=== PATIENT | female | born 1995 | race Caucasian/White ===

== ENCOUNTER → 2016-08-23 | Outpatient (CLI) | payer OTHER ==
--- NOTE | 2016-08-23 09:06 | USB ---
Reason for exam: clinical finding. Indicated problem(s): lump or thickening in the right breast. Physical Findings: Nurse Summary: Patient complains of right breast lump x 1 month (nurse mm). US Breast RT Right breast ultrasound includes all four quadrants, the retroareolar region and axilla. Finding demonstrates no cystic or solid lesion seen. These results were verbally communicated with the patient and result sheet given to the patient on 08/23/16. ASSESSMENT: Benign, BI-RAD 2 RECOMMENDATION: Routine screening mammogram of both breasts at age 39. Manage patient on a clinical basis.
== END | disposition home or self-care (01) ==
LOC: RADUSWWP 08:13
PROVIDERS: ATTEND Obstetrics & Gynecology
DX: N63 Unspecified lump in breast (principal)

== ENCOUNTER 2018-09-29 20:48 | Emergency (ER) | payer BC, MEDICAID ==
[2018-09-29 21:09] VITALS: BP 118/73; PULSE 55; RESP 20; TEMP 98.2
[2018-09-29 22:19] LABS: Amorphous Sediment,Urine Few /hpf; Appearance,Urine Cloudy (Clear); Bilirubin,Urine Negative (Negative); Blood,Urine Moderate (Negative); Color,Urine Yellow; Glucose,Urine (UA) Negative (Negative); Ketones,Urine Negative (Negative); Leukocyte Esterase,Urine Negative (Negative); Mucus,Urine Rare /hpf; Nitrite,Urine Negative (Negative); PH, Urine 6.5 (5.0-8.0); Protein,Urine Negative (Negative); RBC,Urine 3 /hpf (0-5); Specific Gravity,Urine 1.016 (1.001-1.035); Squamous Epithelial Cell,Urine 1 /hpf (0-4); Urobilinogen,Urine <2.0 mg/dL (<2.0)
--- NOTE | 2018-09-29 22:28 | ED ---
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 Patient presents the emergency department today for evaluation of vaginal bleeding. Patient reports she had some vaginal bleeding approximately 2 weeks ago she was evaluated by her restaurant crew person at which time ultrasound was normal. Patient reports that today she was in the car when she felt a gush of fluid she checked and there was a large blood clot, she states that there was no products. She's not having any cramping or discomfort. She does not have any lower urinary tract symptoms. She has scheduled follow-up with her restaurant crew person next week. - Related Data Home Medications Medication Instructions Recorded Confirmed Vit No.124/Iron/Folic 1 each PO DAILY 01/28/15 08/24/15 [ Vitamin Tablet] Previous Rx's Medication Instructions Recorded Acetaminophen-Codeine 300-30mg 2 each PO Q4HR PRN #30 tab 08/26/15 [Tylenol w/codeine #3] Allergies Allergy/AdvReac Type Severity Reaction Status Date / Time No Known Allergies Allergy Verified 08/24/15 20:38 Review of Systems ROS Statement: Those systems with pertinent positive or pertinent negative responses have been documented in the HPI. ROS Other: All systems not noted in ROS Statement are negative. Past Medical History Past Medical History: Cancer Additional Past Medical History / Comment(s): Obstetric history: This is her first and she has had care with me since 9 weeks gestation. A+, abs neg, Rub Imm, RPR NR, Hep B neg, HIV NR. Neg quad and normal anatomy US. normal 1hr GTT. GBS neg. History of Any Multi-Drug Resistant Organisms: None Reported Additional Past Surgical History / Comment(s): Melanoma removal, tongue clipped as child. Past Anesthesia/Blood Transfusion Reactions: No Reported Reaction Past Psychological History: No Psychological Hx Reported Smoking Status: Never smoker Past Alcohol Use History: None Reported Past Drug Use History: None Reported - Past Family History Mother Family Medical History: Hypertension Additional Family Medical History / Comment(s): thyroid cancer -maternal grandmother. melanoma - mother General Exam - General Exam Comments Initial Comments: Physical Exam GENERAL: Patient is well-developed and well-nourished. Patient is nontoxic and well- hydrated and is in no distress. HENT: Normocephalic, Atraumatic. EYES: PERRL, EOMI No conjunctival pallor PULMONARY: Unlabored respirations. CARDIOVASCULAR: There is a regular rate and rhythm without any murmurs gallops or rubs. ABDOMEN: Soft and nontender with normal bowel sounds Bedside US single intrauterine fetus, very active on evaluation, heart rate in the 160s SKIN: Skin is clear with no lesions or rashes and otherwise unremarkable. : Deferred NEUROLOGIC: Patient is alert and oriented x3. Moving all extremities spontaneously MUSCULOSKELETAL: Normal extremities with adequate strength and full range of motion. No lower extremity swelling or edema. No calf tenderness. PSYCHIATRIC: Normal psychiatric evaluation. Limitations: no limitations Limitations: no limitations Course Vital Signs 09/29/18 21:05 Temperature 98.2 F Pulse Rate 55 L Respiratory 20 Rate Blood Pressure 118/73 O2 Sat by Pulse 100 Oximetry Medical Decision Making - Medical Decision Making Patient was seen and evaluated, history is obtained from the patient Review of medical record reveals the patient is Rh+ therefore no indication for Robaxin Patient is in her second trimester having a single episode of lasting a blood c lot remaining cramping or discomfort But that ultrasound with a single active fetus Offered the patient a pelvic exam however given that she's not having any active bleeding or discomfort she declined Urinalysis with no signs of infection were discussed with the patient was comfortable with plan for discharge home. Patient is arty contacted her filler blender and will be evaluated later in the week. She was advised to maintain pelvic rest and she'll evaluated by OB. - Lab Data Lab Results 09/29/18 Range/Units 22:00 Urine Color Yellow Urine Appearance Cloudy H (Clear) Urine pH 6.5 (5.0-8.0) Ur Specific [place] 1.016 (1.001-1.035) Urine Protein Negative (Negative) Urine Glucose (UA) Negative (Negative) Urine Ketones Negative (Negative) Urine Blood Moderate H (Negative) Urine Nitrite Negative (Negative) Urine Bilirubin Negative (Negative) Urine Urobilinogen <2.0 (<2.0) mg/dL Ur Leukocyte Esterase Negative (Negative) Urine RBC 3 (0-5) /hpf Ur Squamous Epith Cells 1 (0-4) /hpf Amorphous Sediment Few H (None) /hpf Urine Mucus Rare H (None) /hpf Disposition Clinical Impression: Vaginal bleeding in patient at less than 20 weeks gestation Disposition: HOME SELF-CARE Condition: Stable Instructions (If sedation given, give patient instructions): Threatened Miscarriage (ED) Additional Instructions: Pelvic rest until you follow up with OB Is patient prescribed a controlled substance at d/c from ED?: No Referrals: None,Stated [Primary Care Provider] - 1-2 days Niki Sigala DO [Doctor of Osteopathic Medicine] - 1-2 days
== END 2018-09-29 22:54 | disposition home or self-care (01) ==
LOC: EC 20:48
DX: O20.9 Hemorrhage in early pregnancy, unspecified (principal); Z85.820 Personal history of malignant melanoma of skin; Z3A.14 14 weeks gestation of pregnancy; Z53.29 Procedure and treatment not carried out because of patient's decision for other reasons
CPT/HCPCS: 81001; 99284

== ENCOUNTER 2019-03-18 06:43 | Inpatient (IN) | payer BC, OTHER ==
[2019-03-18] MEDS ORDERED: METHYLERGONOVINE 0.2 MG/ML 1 ML AMP IM PRN (07:03)
[2019-03-18] MEDS ORDERED: TERBUTALINE 1 MG/ML VIAL SQ PRN (07:03)
[2019-03-18] MEDS ORDERED: CARBOPROST TROMETHAMINE 250 MCG/ML 1 ML AMP IM PRN (07:03)
[2019-03-18] MEDS ORDERED: OXYTOCIN 10 UNIT/ML 1 ML VIAL IM PRN (07:03)
[2019-03-18] MEDS ORDERED: LIDOCAINE 0.5% (PF) 5 MG/ML (50 ML SDV) SQ PRN (07:03)
[2019-03-18] MEDS ORDERED: OXYTOCIN 30 UNITS/500 ML NS 30 UNIT in SALINE 1 500ML.BAG IV SCH (07:15)
[2019-03-18] MEDS: LACTATED RINGERS 1,000 ML IV SCH ×2 (08:00→13:08)
[2019-03-18 08:21] LABS: Basophils % (A) 0 %; Eosinophils # (A) 0.1 k/uL (0-0.7); Eosinophils % (A) 1 %; HCT 33.6 % (34.0-46.0); HGB 10.2 gm/dL (11.4-16.0); Hypochromasia Slight; Lymphocytes # (A) 1.5 k/uL (1.0-4.8); Lymphocytes % (A) 15 %; MCH 23.5 pg (25.0-35.0); MCHC 30.3 g/dL (31.0-37.0); MCV 77.6 fL (80.0-100.0); Mean Platelet Volume 6.6; Monocytes # (A) 0.5 k/uL (0-1.0); Monocytes % (A) 5 %; Neutrophils # (A) 7.7 k/uL (1.3-7.7); Neutrophils % (A) 76 %; Platelet Count 315 k/uL (150-450); RBC 4.33 m/uL (3.80-5.40); RDW 14.6 % (11.5-15.5); WBC 10.2 k/uL (3.8-10.6)
[2019-03-18 08:55] VITALS: BMI 29.1
[2019-03-18] MEDS ORDERED: SODIUM CHLORIDE 0.9% 100 ML BAG ONE (11:24)
[2019-03-18] MEDS ORDERED: fentaNYL (PF) 50 MCG/ML 5 ML AMP ONE (11:24)
[2019-03-18] MEDS ORDERED: ROPIVACAINE 5MG/ML 20ML VIAL ONE (11:24)
[2019-03-18] MEDS ORDERED: IBUPROFEN 600 MG TAB PO PRN (16:30)
[2019-03-18] MEDS ORDERED: HYDROCORTISONE 2.5% RECTAL CREAM 30 GM TUBE RECTAL PRN (16:30)
[2019-03-18] MEDS ORDERED: ZOLPIDEM 5 MG TAB PO PRN (16:30)
[2019-03-18] MEDS ORDERED: BENZOCAINE/MENTHOL SPRAY 1 GM/SPRAY AEROSOL TOPICAL PRN (16:30)
[2019-03-18] MEDS ORDERED: diphenhydrAMINE 50 MG/ML 1 ML VIAL IVP PRN ×2 (16:30)
[2019-03-18] MEDS ORDERED: OXYTOCIN 20 UNITS/1000 ML NS 1,000 ML IV SCH (16:30)
[2019-03-18] MEDS ORDERED: SIMETHICONE 80 MG CHEWABLE PO PRN (16:30)
[2019-03-18] MEDS ORDERED: WITCH HAZEL 1 EACH MED..PAD TOPICAL PRN (16:30)
[2019-03-18] MEDS ORDERED: diphenhydrAMINE 25 MG CAP PO PRN (16:30)
[2019-03-18] MEDS ORDERED: LANOLIN CREAM 5 GM TUBE TOPICAL PRN (16:30)
[2019-03-18] MEDS ORDERED: diphenhydrAMINE 50 MG CAP PO PRN (16:30)
[2019-03-18] MEDS ORDERED: ACETAMINOPHEN TAB 325 MG TAB PO PRN (16:30)
--- NOTE | 2019-03-18 16:33 | P.HPOB ---
History of Present Illness H&P Date: 03/18/19 Chief Complaint: Spontaneous rupture of membranes 23-year-old presents at 38 weeks and 6 days with spontaneous rupture membranes at 5:30 AM. When she presented around 7:30 she was 2-3 cm dilated, 60% effaced, and -2 station. She is latisha every 4-5 minutes. heart tones 130 with moderate variability and reactive. Review of Systems All systems: negative Constitutional: Denies chills, Denies fever Eyes: denies blurred vision, denies pain Ears, nose, mouth and throat: Denies headache, Denies sore throat Cardiovascular: Denies chest pain, Denies shortness of breath Respiratory: Denies cough Gastrointestinal: Denies abdominal pain, Denies diarrhea, Denies nausea, Denies vomiting Genitourinary: Denies dysuria, Denies hematuria Musculoskeletal: Denies myalgias Integumentary: Denies pruritus, Denies rash Neurological: Denies numbness, Denies weakness Psychiatric: Denies anxiety, Denies depression Endocrine: Denies fatigue, Denies weight change Past Medical History Past Medical History: Cancer Additional Past Medical History / Comment(s): Obstetric history: First was a vaginal delivery. This is her second and she has had care with me since 9 weeks gestation. A+, abs neg, Rub Imm, RPR NR, Hep B neg, HIV NR. Neg quad and normal anatomy US. normal 1hr GTT. GBS neg. History of Any Multi-Drug Resistant Organisms: None Reported Additional Past Surgical History / Comment(s): Melanoma removal, tongue clipped as child. Past Anesthesia/Blood Transfusion Reactions: No Reported Reaction Past Psychological History: No Psychological Hx Reported Smoking Status: Never smoker Past Alcohol Use History: None Reported Past Drug Use History: None Reported - Past Family History Mother Family Medical History: Hypertension Additional Family Medical History / Comment(s): thyroid cancer -maternal grandmother. melanoma - mother Medications and Allergies Home Medications Medication Instructions Recorded Confirmed Type No Known Home Medications 03/18/19 03/18/19 History Allergies Allergy/AdvReac Type Severity Reaction Status Date / Time No Known Allergies Allergy Verified 03/18/19 06:50 Exam Osteopathic Statement: *. No significant issues noted on an osteopathic structural exam other than those noted in the History and Physical/Consult. Vital Signs Temp Pulse Resp BP Pulse Ox 03/18/19 16:11 131 H 16 126/66 03/18/19 15:41 133 H 16 130/79 03/18/19 15:26 121 H 16 127/66 03/18/19 15:11 127 H 16 153/67 03/18/19 14:56 126 H 16 150/77 03/18/19 14:41 98.3 F 120 H 16 130/70 03/18/19 06:51 97.5 F L 121 H 16 124/68 98 Intake and Output 03/18/19 03/18/19 03/18/19 06:59 14:59 22:59 Output Total 200 Balance -200 Output: Estimated Blood Loss 200 Other: Weight 79.379 kg Heart: Regular rate and rhythm Lungs: Clear to auscultation bilaterally Abdomen: Soft, nontender Extremities: Negative Homans sign Results Result Diagrams: 03/18/19 08:00 Abnormal Lab Results - Last 24 Hours (Table) 03/18/19 Range/Units 08:00 Hgb 10.2 L (11.4-16.0) gm/dL Hct 33.6 L (34.0-46.0) % MCV 77.6 L (80.0-100.0) fL MCH 23.5 L (25.0-35.0) pg MCHC 30.3 L (31.0-37.0) g/dL Assessment and Plan (1) Spontaneous rupture of membranes Current Visit: Yes Status: Acute Code(s): QDE0844 - SNOMED Code(s): 663792956 (2) Normal labor Current Visit: Yes Status: Acute Code(s): O80 - ENCOUNTER FOR FULL-TERM UNCOMPLICATED DELIVERY; Z37.9 - OUTCOME OF DELIVERY, UNSPECIFIED SNOMED Code(s): 93527793 Plan: 1. Admit to family place 2. Expectant management with augmentation if necessary 3. Anticipate normal vaginal delivery
--- NOTE | 2019-03-18 16:34 | P.PROBDLV ---
Vaginal Delivery Note - . Vaginal Delivery Note: 23-year-old presents at 38 weeks and 6 days with spontaneous rupture membranes at 5:30 AM. When she presented around 7:30 she was 2-3 cm dilated, 60% effaced, and -2 station. She is latisha every 4-5 minutes. heart tones 130 with moderate variability and reactive. 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 When she was uncomfortable she did get an epidural. Her cervix was completely dilated at 1419. She pushed, delivered a viable male infant over intact perineum under epidural anesthesia at 1430. Head delivered OA, anterior shoulder delivered gentle downward guidance. The posterior shoulder and rest of body. Nose and mouth bulb suctioned, cord clamped and cut, placed on mother's abdomen. Apgars 9, 10, weight 8 lbs. 7 oz. Placenta delivered spontaneously, intact with three-vessel cord at 1433. Vagina, cervix, and perineum were inspected. No lacerations noted. Estimated blood loss 200 mL. Mother and baby in stable condition.
[2019-03-18 20:30] VITALS: RESP 16
[2019-03-18] MEDS: SENNOSIDES-DOCUSATE SODIUM 1 EACH TAB PO SCH (20:33)
[2019-03-19 07:46] VITALS: BP 124/69; PULSE 113; TEMP 97.8
[2019-03-19] MEDS: SENNOSIDES-DOCUSATE SODIUM 1 EACH TAB PO SCH (07:47)
[2019-03-19 08:18] LABS: Basophils % (A) 0 %; Eosinophils % (A) 0 %; HCT 31.8 % (34.0-46.0); HGB 10.3 gm/dL (11.4-16.0); Hypochromasia Slight; Lymphocytes # (A) 1.3 k/uL (1.0-4.8); Lymphocytes % (A) 10 %; MCH 24.9 pg (25.0-35.0); MCHC 32.3 g/dL (31.0-37.0); MCV 77.3 fL (80.0-100.0); Mean Platelet Volume 6.3; Monocytes # (A) 0.5 k/uL (0-1.0); Monocytes % (A) 4 %; Neutrophils # (A) 10.7 k/uL (1.3-7.7); Neutrophils % (A) 83 %; Platelet Count 289 k/uL (150-450); RBC 4.11 m/uL (3.80-5.40); RDW 14.6 % (11.5-15.5); WBC 12.9 k/uL (3.8-10.6)
--- NOTE | 2019-03-19 08:32 | P.DS ---
Providers Date of admission: 03/18/19 07:02 Expected date of discharge: 03/19/19 Attending physician: Niki Sigala Primary care physician: Stated None - Discharge Diagnosis(es) (1) Spontaneous rupture of membranes Current Visit: Yes Status: Resolved (2) Normal labor Current Visit: Yes Status: Resolved (3) Normal vaginal delivery Current Visit: No Status: Acute Hospital Course: Patient presented with spontaneous rupture of membranes and latisha at 38 weeks and 6 days. She underwent augmentation of labor with Pitocin and then a normal vaginal delivery. Her course has been uncomplicated. She de nies nausea, vomiting, chest pain, shortness of breath or calf pain. Her lochia is decreasing and her pain is controlled. She'll be discharged home day #1 in stable condition to follow-up with me in 6 weeks. Plan - Discharge Summary New Discharge Prescriptions: No Action No Known Home Medications Discharge Medication List No Known Home Medications 03/18/19 [History] Follow up Appointment(s)/Referral(s): Niki Sigala DO [Doctor of Osteopathic Medicine] - 6 Weeks Discharge Disposition: HOME SELF-CARE
== END 2019-03-19 15:20 | disposition home or self-care (01) | DRG 807 ==
LOC: FBPOP 06:43 → 4FBP 07:02
PROVIDERS: ADMIT Obstetrics & Gynecology; ATTEND Obstetrics & Gynecology
PROC: 10E0XZZ Delivery of Products of Conception, External Approach (ICD-10-PCS; principal; 2019-03-18)
PROC: 00HU33Z Insertion of Infusion Device into Spinal Canal, Percutaneous Approach (ICD-10-PCS; principal; 2019-03-18)
PROC: 3E0R3BZ Introduction of Anesthetic Agent into Spinal Canal, Percutaneous Approach (ICD-10-PCS; principal; 2019-03-18)
DX: O80 Encounter for full-term uncomplicated delivery (principal); Z37.0 Single live birth; Z3A.38 38 weeks gestation of pregnancy; Z80.8 Family history of malignant neoplasm of other organs or systems; Z82.49 Family history of ischemic heart disease and other diseases of the circulatory system; Z85.820 Personal history of malignant melanoma of skin
CPT/HCPCS: 59025; 85025; 86850; 86900; 86901; 99213

== ENCOUNTER → 2020-07-13 | Outpatient (CLI) | payer BC, OTHER ==
[2020-07-13 13:09] LABS: Basophils % (A) 0 %; Eosinophils # (A) 0.3 k/uL (0-0.7); Eosinophils % (A) 3 %; HCT 44.2 % (34.0-46.0); HGB 14.6 gm/dL (11.4-16.0); Lymphocytes # (A) 2.5 k/uL (1.0-4.8); Lymphocytes % (A) 26 %; MCH 28.6 pg (25.0-35.0); MCV 86.7 fL (80.0-100.0); Mean Platelet Volume 7.3; Monocytes # (A) 0.4 k/uL (0-1.0); Monocytes % (A) 4 %; Neutrophils # (A) 6.2 k/uL (1.3-7.7); Neutrophils % (A) 65 %; Platelet Count 335 k/uL (150-450); RDW 12.4 % (11.5-15.5); WBC 9.6 k/uL (3.8-10.6)
[2020-07-13 13:16] LABS: African American GFR (CKD) >90 (>60 ml/min/1.73 sqM); Anion Gap 9 mmol/L; Blood Urea Nitrogen 11 mg/dL (7-17); Calcium 10.1 mg/dL (8.4-10.2); Carbon Dioxide 28 mmol/L (22-30); Chloride 103 mmol/L (98-107); Glucose 87 mg/dL (74-99); Non-African American GFR(CKD) >90 (>60 ml/min/1.73 sqM); Potassium 4.1 mmol/L (3.5-5.1); Sodium 140 mmol/L (137-145)
== END | disposition home or self-care (01) ==
LOC: LABPAT 11:39
PROVIDERS: ATTEND Obstetrics & Gynecology
DX: Z01.818 Encounter for other preprocedural examination (principal)
CPT/HCPCS: 36415; 80048; 85025

== ENCOUNTER 2020-07-23 05:40 | Observation (INO) | payer BC, OTHER ==
[2020-07-16 13:26] VITALS: BMI 20.7
[2020-07-23] MEDS ORDERED: DEXAMETHASONE SOD PHOSPHATE 4 MG/ML 1 ML VIAL IV ONE (06:05)
[2020-07-23] MEDS ORDERED: ONDANSETRON 4 MG/2 ML VIAL IVP ONE (06:05)
[2020-07-23] MEDS ORDERED: LIDOCAINE 1% (10MG/ML) FOR IV START INTRADERMA PRN (06:05)
[2020-07-23] MEDS ORDERED: SCOPOLAMINE 1.5MG/72HR PATCH TRANSDERM ONE (06:05)
[2020-07-23] MEDS: LACTATED RINGERS 1,000 ML IV SCH ×3 (06:19→21:13)
--- NOTE | 2020-07-23 06:35 | P.HPOB ---
History of Present Illness H&P Date: 07/23/20 Chief Complaint: Dysmenorrhea, pelvic pain 24 year old presents for Total Laparoscopic Hysterectomy, Bilateral Salpingectomy with possible bilateral oopherectomy, possible DMITRY BSO, and diagnostic cystoscopy. This procedure is being done for ongoing pelvic pain that started as dysmenorrhea. Review of Systems All systems: negative Constitutional: Denies chills, Denies fever Eyes: denies blurred vision, denies pain Ears, nose, mouth and throat: Denies headache, Denies sore throat Cardiovascular: Denies chest pain, Denies shortness of breath Respiratory: Denies cough Gastrointestinal: Denies abdominal pain, Denies diarrhea, Denies nausea, Denies vomiting Genitourinary: Denies dysuria, Denies hematuria Musculoskeletal: Denies myalgias Integumentary: Denies pruritus, Denies rash Neurological: Denies numbness, Denies weakness Psychiatric: Denies anxiety, Denies depression Endocrine: Denies fatigue, Denies weight change Past Medical History Past Medical History: Asthma, Cancer Additional Past Medical History / Comment(s): MELENOMA X3 , EXCERCISE INDUCED ASTHMA History of Any Multi-Drug Resistant Organisms: None Reported Additional Past Surgical History / Comment(s): Melanoma removal X 3, tongue clipped as child. SKIN LESIONS REMOVED Past Anesthesia/Blood Transfusion Reactions: No Reported Reaction Smoking Status: Never smoker Past Alcohol Use History: Occasional Past Drug Use History: None Reported - Past Family History Mother Family Medical History: Hypertension Additional Family Medical History / Comment(s): thyroid cancer -maternal grandmother. melanoma - mother Medications and Allergies Home Medications Medication Instructions Recorded Confirmed Type Control Pill Unknown 1 tab PO DAILY 07/16/20 07/23/20 History Allergies Allergy/AdvReac Type Severity Reaction Status Date / Time No Known Allergies Allergy Verified 07/23/20 06:05 Exam Osteopathic Statement: *. No significant issues noted on an osteopathic structural exam other than those noted in the History and Physical/Consult. Vital Signs Temp Pulse Resp BP Pulse Ox 07/23/20 06:02 99.3 F 95 18 128/72 99 Intake and Output 07/22/20 07/22/20 07/23/20 14:59 22:59 06:59 Other: Weight 57.1 kg HEart: RRR Lungs: CTAB Abdomen: soft, nontender Extremeties: neg silvina's Assessment and Plan (1) Pelvic pain Current Visit: Yes Status: Acute Code(s): R10.2 - PELVIC AND PERINEAL PAIN SNOMED Code(s): 16312058 (2) Dysmenorrhea Current Visit: Yes Status: Acute Code(s): N94.6 - DYSMENORRHEA, UNSPECIFIED SNOMED Code(s): 556264024 Plan: 1. TL BS, with da lu with diagnostic cystoscopy, possible DMITRY BSO
[2020-07-23] MEDS ORDERED: fentaNYL (PF) 50 MCG/ML 2 ML AMP IVP ONE (06:46)
[2020-07-23] MEDS ORDERED: MIDAZOLAM 2 MG/2 ML VIAL IVP ONE (06:46)
[2020-07-23] MEDS ORDERED: HYDROmorphone 0.5 MG/0.5 ML SYRINGE IVP PRN (07:00)
[2020-07-23] MEDS ORDERED: GLYCOPYRROLATE 0.2 MG/ML 2 ML VIAL ONE (07:09)
[2020-07-23] MEDS ORDERED: SUCCINYLCHOLINE CHLORIDE 100 MG/5 ML SYR IV ONE (07:09)
[2020-07-23] MEDS ORDERED: MORPHINE SULFATE (PF) 0.3 MG/0.3 ML SYR ONE (07:09)
[2020-07-23] MEDS ORDERED: LIDOCAINE 1% INJ 10MG/ML (20 ML MDV) ONE (07:09)
[2020-07-23] MEDS ORDERED: fentaNYL (PF) 50 MCG/ML 2 ML AMP ONE (07:09)
[2020-07-23] MEDS ORDERED: PROPOFOL 10 MG/ML 20 ML VIAL IV ONE (07:09)
[2020-07-23] MEDS ORDERED: NEOSTIGMINE 1 MG/ML 10 ML VIAL ONE (07:09)
[2020-07-23] MEDS ORDERED: ROCURONIUM 10 MG/ML (5 ML VIAL) IV ONE (07:09)
[2020-07-23] MEDS ORDERED: BUPIVACAINE (PF) 0.25% 30 ML VIAL SQ ONE ×2 (08:02)
--- NOTE | 2020-07-23 08:54 | P.OP ---
Date of Procedure: 07/23/20 Preoperative Diagnosis: 1. Dysmenorrhea 2. pelvic pain Postoperative Diagnosis: 1. dysmenorrhea 2. pelvic pain Procedure(s) Performed: TLH BS with da norman, diagnostic cystoscopy, removal of IUD, aspiration of left ovarian cyst Anesthesia: MICHAEL Surgeon: Niki Sigala Packing And Final Assembly Supervisor #1: Satinder Millard Estimated Blood Loss (ml): 50 IV fluids (ml): 500 Urine output (ml): 100 Pathology: other (uterus, cervix, bilateral fallopian tubes) Condition: stable Disposition: PACU Operative Findings: IUD in place. normal uterus, tubes and ovaries. small left simple ovarian cyst. Description of Procedure: Patient taken the operating room where general anesthesia was obtained without difficulty. She is prepped and draped in normal sterile fashion dorsal lithotomy position, legs placed in the Deng stirrups. Weighted speculum placed in the vagina and the anterior lip the cervix was grasped with single-tooth tenaculum. The uterus sounded to 9 cm and the cervix diameter was 2.5 cm. The appropriate manipulator tip and ring were placed on the Alycia manipulator. The Alycia manipulator was then placed in the uterus. Mckee catheter was also placed. Attention was then turned to the abdomen and gloves were changed. A 5 mm supraumbilical incision was made the scalpel and a 5 mm optical trocar was placed under direct visualization. 10 cm to the right of this and 2 cm down a 5 mm incision was made and 8 mm da Norman port was placed under direct visualization. Same measurements on the opposite side of the patient's abdomen, the 5 mm incision was made and 8 mm da [place] port was placed under direct visualization. In the left upper quadrant a 10 mm incision was made and a 10 mm optical trocar was placed under direct visualization. The 5 mm optical trocar was then replaced with the 8 mm da Norman camera port. The robot was docked on patient's left side. The camera was introduced and then the monopolar curved scissor and [place] bipolar placed under direct visualization. I broke scrub and went to the physician console. Survey of the pelvis revealed normal uterus, tubes, ovaries. There is a small left ovarian cyst. I drained the simple cyst using the monopolar curved scissors. The left fallopian tube was elevated and the left mesosalpinx was cauterized with the [place] bipolar and cut with monopolar curved scissors. The left round ligament and utero-ovarian ligament were cauterized with the [place] bipolar and cut with monopolar curved scissors. The posterior leaf of the broad ligament was taken down using the monopolar curved scissors. Anterior leaf of the broad ligament was then taken down using the monopolar curved scissors. The uterine artery was cauterized with the [place] bipolar and cut with monopolar curved scissors. The bladder flap was then started using the monopolar curved scissors. Attention was then turned to the right side of the patient's anatomy. The right fallopian tube was elevated and the right mesosalpinx was cauterized with the [place] bipolar and cut with monopolar curved scissors. The right round ligament and utero ovarian ligament were cauterized with the [place] bipolar and cut with monopolar curved scissors. Posterior leaf of the broad ligament was taken down using the monopolar curved scissors and the anterior leaf was taken down using the monopolar curved scissors. The uterine artery was cauterized the [place] bipolar cut with monopolar curved scissors. The bladder flap was then finished on this side. Anterior colpotomy was made using the monopolar curved scissors. The rest of the uterus was from the vaginal cuff by following the ring around with the monopolar curved scissors through the uterosacral ligaments back to the anterior portion. Once the uterus and cervix were amputated they were pulled through the vaginal cuff. Hemostasis was assured. The instruments were changed for the [place]ier forcep and the deann suture cut. The vaginal cuff was then closed using 2-O stratafix barbed suture in a running fashion. Hemostasis was again assured and the pelvis was irrigated. All instruments were removed from the abdomen and the robot was undocked. I scrubbed back in to perform a cystoscopy. There were jets from both ureteral orifices. The abdominal incisions were closed with 4-0 Vicryl in a subcuticular fashion. Patient tolerated the procedure well, sponge and instrument counts correct 2 and she was taken to recovery room in stable condition condition
[2020-07-23] MEDS ORDERED: NALBUPHINE 10 MG/ML (1 ML AMP) IV PRN (09:23)
[2020-07-23] MEDS ORDERED: NALOXONE 0.4 MG/ML 1 ML VIAL IV PRN (09:23)
[2020-07-23] MEDS ORDERED: MORPHINE SULFATE 2 MG/ML SYRINGE IVP PRN (09:23)
[2020-07-23] MEDS ORDERED: ONDANSETRON 4 MG/2 ML VIAL IVP PRN ×2 (09:23→09:42)
[2020-07-23] MEDS ORDERED: diphenhydrAMINE 50 MG/ML 1 ML VIAL IVP PRN ×2 (09:23→09:42)
--- NOTE | 2020-07-23 09:29 | P.ANPRN ---
Procedure Note - Anesthesia - Epidural/Spinal Spinal Time Out Performed: Yes Date of Procedure: 07/23/20 Procedure Start Time: 06:47 Procedure Stop Time: 06:52 Location of Patient: PreOp Indication: Acute Post-Operative Pain, Requested by Surgeon (Jovon) Sedation Type: Sedate with meaningful contact maintained Preparation: Sterile Prep Position: Supine Catheter: None Needle Guage: 25 Narrative: Sterile prep and drape. L4-l5. Local 25g spinal in one attempt. Fentanyl 25mcg and Duramorph 300mcg injected. 1 attempt Blood Aspirated: No Pain Paresthesia on Injection Noted: No Events: Uneventful and Well Tolerated
[2020-07-23] MEDS ORDERED: Acetaminophen-Codeine 300-30mg TAB PO PRN ×2 (09:42)
[2020-07-23] MEDS ORDERED: METOCLOPRAMIDE 5 MG/ML 2 ML VIAL IVP PRN (09:42)
[2020-07-23] MEDS ORDERED: KETOROLAC 15 MG/ML 1 ML VIAL IVP PRN (09:42)
[2020-07-23] MEDS ORDERED: SIMETHICONE 80 MG CHEWABLE PO PRN (09:42)
[2020-07-23] MEDS ORDERED: IBUPROFEN 600 MG TAB PO PRN (09:42)
[2020-07-23] MEDS: KETOROLAC 15 MG/ML 1 ML VIAL IVP PRN (13:50)
--- NOTE | 2020-07-24 07:03 | P.PN ---
Progress Note - Text Date: 07/24/2020 Time: 06:51 The patient is status post, robotic-assisted hysterectomy Vital signs stable VAS: 0-10 Patient has no complaints of pain. The patient incurred some minimal itching yesterday, this itching is now subsiding. Pain meds to be managed by service.
[2020-07-24 07:40] LABS: Basophils % (A) 0 %; Eosinophils # (A) 0.1 k/uL (0-0.7); Eosinophils % (A) 1 %; HCT 35.9 % (34.0-46.0); HGB 12.3 gm/dL (11.4-16.0); Lymphocytes # (A) 2.1 k/uL (1.0-4.8); Lymphocytes % (A) 23 %; MCH 29.9 pg (25.0-35.0); MCHC 34.4 g/dL (31.0-37.0); Mean Platelet Volume 7.3; Monocytes # (A) 0.6 k/uL (0-1.0); Monocytes % (A) 6 %; Neutrophils # (A) 6.4 k/uL (1.3-7.7); Neutrophils % (A) 69 %; Platelet Count 288 k/uL (150-450); RBC 4.13 m/uL (3.80-5.40); RDW 12.1 % (11.5-15.5); WBC 9.3 k/uL (3.8-10.6)
[2020-07-24 07:53] VITALS: RESP 18
[2020-07-24 07:54] VITALS: BP 104/57; PULSE 103; TEMP 98.1
[2020-07-24] MEDS: KETOROLAC 15 MG/ML 1 ML VIAL IVP PRN (08:25)
[2020-07-24] MEDS ORDERED: HYDROcodone/APAP 7.5-325MG 1 EACH TAB PO PRN (08:38)
--- NOTE | 2020-07-24 08:43 | P.DS ---
Providers Date of admission: 07/23/20 23:18 Expected date of discharge: 07/24/20 Attending physician: Niki Sigala Primary care physician: Stated None - Discharge Diagnosis(es) (1) Pelvic pain Current Visit: Yes Status: Acute (2) Dysmenorrhea Current Visit: Yes Status: Acute (3) History of robot-assisted laparoscopic hysterectomy Current Visit: Yes Status: Acute Hospital Course: Patient presented for TLH BS via da Norman. She underwent this procedure without complication. Postoperatively her pain is well-controlled. She has had a little bit of nausea but currently no vomiting, no chest pain, shortness of br eath or any calf pain. She is tolerating regular diet and passing flatus. Her incisions are clean, dry, intact. She will be discharged home postoperative day #1 in stable condition to follow-up with me in 3 weeks. Plan - Discharge Summary Discharge Rx Participant: Yes New Discharge Prescriptions: New Ibuprofen [Motrin] 600 mg PO Q6HR PRN #30 tab PRN Reason: Mild Discomfort HYDROcodone/APAP 7.5-325MG [[place] 7.5-325] 1 each PO Q6H PRN #12 tab PRN Reason: Pain No Action Control Pill Unknown 1 tab PO DAILY Discharge Medication List Control Pill Unknown 1 tab PO DAILY 07/16/20 [History] HYDROcodone/APAP 7.5-325MG [[place] 7.5-325] 1 each PO Q6H PRN #12 tab 07/24/20 [Rx] Ibuprofen [Motrin] 600 mg PO Q6HR PRN #30 tab 07/24/20 [Rx] Follow up Appointment(s)/Referral(s): Niki Sigala DO [Doctor of Osteopathic Medicine] - 3 Weeks Discharge Disposition: HOME SELF-CARE
== END 2020-07-24 12:17 | disposition home or self-care (01) ==
LOC: OR 05:40 → 4FBP 08:36 → OR 23:18 → 4FBP 23:18 → OR 07-24 05:24
PROVIDERS: ADMIT Obstetrics & Gynecology; ATTEND Obstetrics & Gynecology
DX: N94.6 Dysmenorrhea, unspecified (principal); R10.2 Pelvic and perineal pain; J45.909 Unspecified asthma, uncomplicated; Z85.820 Personal history of malignant melanoma of skin; Z79.3 Long term (current) use of hormonal contraceptives; N83.292 Other ovarian cyst, left side; Z97.5 Presence of (intrauterine) contraceptive device; Z82.49 Family history of ischemic heart disease and other diseases of the circulatory system; Z80.8 Family history of malignant neoplasm of other organs or systems
CPT/HCPCS: 58301; 58571; S2900; 81025; 85025; 86850; 86900; 86901; 88307